=== PATIENT | female | born 1965 | race Caucasian/White ===

== ENCOUNTER → 2016-09-03 | Outpatient (REF) | payer BC | LOC: M LAB REF 12:33 | PROVIDERS: ATTEND Nurse Practitioner Adult Health | DX: R50.9 Fever, unspecified (principal) ==

== ENCOUNTER → 2019-09-14 | Outpatient (REF) | payer OTHER ==
[2019-09-14 19:12] LABS: INFLUENZA A AMPLIFICATION NEGATIVE (NEGATIVE); INFLUENZA B AMPLIFICATION NEGATIVE (NEGATIVE)
== END ==
LOC: M LAB REF 16:42
PROVIDERS: ATTEND Registered Nurse
DX: J06.9 Acute upper respiratory infection, unspecified (principal)

== ENCOUNTER 2020-10-13 09:24 | Day surgery (SDC) | payer OTHER ==
[~2020-10-13] VITALS: Ht 165.1 cm; Wt 83.5 kg
[~2020-10-13 09:24] MED LIST: AMLO10TA PO; ASPI81TA26 PO; CETI10CA13 PO; CRYS28TA PO; HYDR-3490 PO; LABE200T32 PO; LIDOCAINE 1% MDV 20ML VIAL SQ PRN; LR 1,000 ML IV ONE; NEXI20TA PO; NOXI1TAB PO; PRAV40TA2 PO; ceFAZolin SOD 2 GM in IV 1 EA IV ONE
[2020-10-13 09:56] LABS: HEMATOCRIT 35.4 % (36.0-47.0); HEMOGLOBIN 10.1 g/dl (12.0-15.5); MEAN CORPUSCULAR HEMOGLOBIN 19.7 pg (27.0-33.0); MEAN CORPUSCULAR HGB CONC 28.5 g/dl (32.0-36.5); PLATELET COUNT, AUTOMATED 389 10^3/uL (150-450); RED BLOOD COUNT 5.13 10^6/uL (4.00-5.40); WHITE BLOOD COUNT 11.3 10^3/uL (4.0-10.0)
[2020-10-13] MEDS ORDERED: fentaNYL 100 MCG/2 ML INJECTION (J3010) As Ordered ONE ×2 (11:47→13:45)
[2020-10-13] MEDS ORDERED: LIDOCAINE 2% 100MG/5ML SDV (FOR ANES.) As Ordered ONE (11:47)
[2020-10-13] MEDS ORDERED: propofoL 200 MG/20 ML VIAL As Ordered ONE (11:47)
[2020-10-13] MEDS ORDERED: SUGAMMADEX SODIUM 500 MG/5 ML VIAL (BRIDION) As Ordered ONE (11:47)
[2020-10-13] MEDS ORDERED: KETOROLAC 60MG 2ML VIAL As Ordered ONE (11:47)
[2020-10-13] MEDS ORDERED: dexameTHASONE 4 MG/ML 1ML VIAL (J1100 PER 1MG) As Ordered ONE (11:47)
[2020-10-13] MEDS ORDERED: ONDANSETRON 4MG/2ML VIAL As Ordered ONE (11:47)
[2020-10-13] MEDS ORDERED: ROCURONIUM BROMIDE 50 MG/5 ML VIAL As Ordered ONE ×2 (11:47→11:56)
[2020-10-13] MEDS ORDERED: MIDAZOLAM INJ 2MG/2ML VIAL (J2250 PER 1MG) As Ordered ONE (11:47)
[2020-10-13] MEDS ORDERED: HYDROmorphone HCL 2 MG/ML 1ML VIAL (J1170) As Ordered ONE (11:47)
[2020-10-13] MEDS ORDERED: ACETAMINOPHEN 1000MG 100ML IV BTL (OFIRMEV) (J0131 PER 10MG) As Ordered ONE (12:34)
[2020-10-13] MEDS: fentaNYL 100 MCG/2 ML INJECTION (J3010) IV PRN ×4 (13:48→14:15)
[2020-10-13] MEDS ORDERED: ONDANSETRON 4MG/2ML VIAL IV PRN (13:55)
[2020-10-13] MEDS ORDERED: oxyCODONE 5MG TAB PO PRN (13:55)
[2020-10-13] MEDS ORDERED: LR 1,000 ML IV SCH (13:55)
[2020-10-13] MEDS ORDERED: NALBUPHINE HCL 10 MG/ML AMP (J2300) IV PRN (14:05)
[2020-10-13] MEDS ORDERED: NS 1,000 ML IV SCH (14:05)
[2020-10-13] MEDS ORDERED: diphenhydrAMINE 50MG/ML VIAL (J1200) IV PRN (14:05)
[2020-10-13] MEDS ORDERED: NALOXONE INJ 0.4MG/1ML VIAL (J2310 PER 1MG) IV PRN (14:05)
[2020-10-13] MEDS ORDERED: IBUPROFEN 600MG TAB PO PRN (14:05)
[2020-10-13] MEDS ORDERED: EPIDURAL/PCA KEYS XX PRN (14:05)
[2020-10-13] MEDS ORDERED: MORPHINE 1MG/ML IN 0.9% NACL 100ML IV BAG IV PRN (14:05)
[2020-10-13] MEDS ORDERED: PRAV20TA2 PO (14:25)
[2020-10-13 15:30] VITALS: BP 151/104
[2020-10-13] MEDS: LR 1,000 ML IV SCH ×2 (15:30→22:19)
[2020-10-13] MEDS ORDERED: BREO1INH3 INH (15:59)
[2020-10-13] MEDS ORDERED: PROAAER10 INH (15:59)
[2020-10-13 16:00] VITALS: BP 128/86
[2020-10-13 17:00] VITALS: BP 124/84
--- NOTE | 2020-10-13 17:48 | RO ---
OPERATIVE NOTE DATE OF OPERATION: 10/13/2020 PREOPERATIVE DIAGNOSIS: Pain, bleeding, and fibroids. POSTOPERATIVE DIAGNOSIS: Pain, bleeding, and fibroids with some minor adhesions most likely from her . PROCEDURE: Robotic-assisted hysterectomy with bilateral salpingo oophorectomy and of course lysis of adhesions. SURGEON: eJssica Suero MD TRIM MASTER OPERATOR: Catarina Painter NP SPECIMEN: Uterus with of course attached cervix and with ovaries and tubes. ANESTHESIA: General endotracheal anesthesia. DESCRIPTION OF PROCEDURE AND FINDINGS: Darline was brought to the operating room where sufficient general tracheal anesthesia was induced. She was prepped and draped in position in the usual sterile fashion. The patient had some natural asymmetry but we did our best to set her as symmetrically as possible. The uterine manipulator was then placed after the uterus was sounded to 10 and of course the Durand with the ability to back-fill was placed. Attention was then turned to the umbilicus where a subumbilical semi-lunar incision was made with sharp and blunt dissection, continued to subcutaneous tissues to the level of the rectus fascia which was transversely incised, secured with 0-Vicryl retention sutures and then the peritoneum entered under direct visualization in an open laparoscopic technique and an Vazquez cannula placed. CO2 insufflation was then begun. After adequate CO2 insufflation, the peritoneal cavity was visualized. There were obstructing adhesions inferiorly, omentum to the anterior abdominal wall in multiple locations. Most of these were filmy and not particularly vascular but they were definitely obstructing the view of the pelvis as noted in the operative report and photos. The upper abdomen was reassuring. Two left-sided, one right-sided ports were placed and prior to docking the robot, we went ahead and using the cold scissors through one of the ports, cut down the most cephalad of these adhesions so that we could do the rest with the robot. We did this because it is very hard to work just below the umbilicus with the robot. The arms will not come back that far and some of the adhesions went right up to that level but we were able to put the camera through one of the side ports and then just worked down through these. Following that, we went ahead and placed the Trendelenburg and docked the robot and then I turned my attention to working from the console. Working from the robotic console, the rest of the adhesions were brought down and the uterus was elevated. Several photos of this fibroid uterus were taken. There were also extensive adhesions of the bladder over the lower uterine segment but we were able to back-fill the bladder and confirm its location. We went ahead and isolated the left infundibulopelvic ligament, cauterized it, transected it, and worked our way back through the broad ligament on the left side up to the round on the left and cauterized this and also transected it, and then worked our way over to the right side following the same procedure carefully identifying the ureters before we did our dissection. We were then able to use cold scissors to just transect the peritoneum across the lower uterine segment. Of course we back-filled the bladder several times to confirm its location due to the restricting adhesions anteriorly, but fortunately the peritoneum was readily dissected and it did retract back more than average but we were able to move the bladder down readily which was good because of course there is extensive recruitment of vascular supply to these fibroids. Fortunately with the bladder down, we were able to isolate those uterine vessels and carefully cauterize and transect them, and then posteriorly we made the colpotomy and worked our way above the insertion of the uterosacrals so that we were avoiding those ureters and keeping those insertions intact. Then with the bladder displaced anteriorly and then made another colpotomy anteriorly and worked our way around to join up with the back working through our cauterized area of the uterine vasculature on both sides and completing that colpotomy. The uterus was delivered into the vagina with some effort. Of course it is enlarged but was able to be delivered with manipulation and the vagina was then closed with V-lock suture in the usual fashion with good approximation and hemostasis achieved. The pelvis was copiously irrigated and reevaluated and good result confirmed. The procedure then ended with the instruments removed, the wounds closed, the 0 Vicryl was used at the fascia at the umbilical incision and the skin at all four wounds closed with 3-0 Vicryl in a subcuticular stitch and dry, sterile dressings were then applied. ESTIMATED BLOOD LOSS FOR THE PROCEDURE: About 75 mL. FLUID REPLACEMENT: Crystalloid. SPECIMEN: Uterus with of course cervix and attached ovaries and tubes. COMPLICATIONS: None. CONDITION AND DISPOSITION: Darline tolerated the procedure well and was recovering in the recovery room in good condition.
[2020-10-13 18:00] VITALS: BP 123/86
[2020-10-13 19:00] VITALS: BP 137/97
[2020-10-13] MEDS: LABETALOL 100MG TAB PO SCH (21:00)
[2020-10-13 22:08] VITALS: BP 146/88
[2020-10-14 01:31] VITALS: BP 122/89
[2020-10-14] MEDS ORDERED: NORCO, ANEXSIA 5/325MG TABLET (HYDROcodone/ACETAMINOPHEN) PO PRN (06:00)
[2020-10-14 06:06] VITALS: BP 127/89
[2020-10-14] MEDS: LR 1,000 ML IV SCH (06:11)
[2020-10-14 07:40] LABS: HEMATOCRIT 33.3 % (36.0-47.0); HEMOGLOBIN 9.5 g/dl (12.0-15.5); MEAN CORPUSCULAR HEMOGLOBIN 19.4 pg (27.0-33.0); MEAN CORPUSCULAR HGB CONC 28.5 g/dl (32.0-36.5); MEAN CORPUSCULAR VOLUME 68.1 fl (80.0-96.0); PLATELET COUNT, AUTOMATED 398 10^3/uL (150-450); RED BLOOD COUNT 4.89 10^6/uL (4.00-5.40); WHITE BLOOD COUNT 18.6 10^3/uL (4.0-10.0)
[2020-10-14] MEDS ORDERED: ALBUTEROL 90 MCG/ACT 8GM HFA INHALER INH SCH (08:00)
[2020-10-14 08:23] VITALS: BP 130/90
[2020-10-14] MEDS: LABETALOL 100MG TAB PO SCH (08:23)
[2020-10-14] MEDS ORDERED: PANTOPRAZOLE 20 MG TAB PO SCH (09:00)
[2020-10-14] MEDS ORDERED: ASPIRIN 81 MG CHEW TABLET PO SCH (09:00)
[2020-10-14] MEDS ORDERED: **UNRESOLVED NON-FORMULARY MED ORDER XX SCH (09:00)
[2020-10-14] MEDS ORDERED: CETIRIZINE (ZyrTEC) 10 MG TAB PO SCH (09:00)
[2020-10-14] MEDS ORDERED: PRAVASTATIN 20 MG TAB PO SCH (09:00)
== END 2020-10-14 11:01 | disposition home or self-care (01) ==
LOC: M SDC 09:24 → M MS5PR 15:35 → M SDC 10-14 11:01
PROVIDERS: ATTEND Obstetrics & Gynecology
DX: N88.8 Other specified noninflammatory disorders of cervix uteri (principal); D25.9 Leiomyoma of uterus, unspecified; N72 Inflammatory disease of cervix uteri; N83.10 Corpus luteum cyst of ovary, unspecified side; K66.0 Peritoneal adhesions (postprocedural) (postinfection); I10 Essential (primary) hypertension; J45.909 Unspecified asthma, uncomplicated; E78.00 Pure hypercholesterolemia, unspecified; Z87.891 Personal history of nicotine dependence; Z79.899 Other long term (current) drug therapy; Z79.82 Long term (current) use of aspirin; Z79.51 Long term (current) use of inhaled steroids
CPT/HCPCS: 36415; 58571; 81025; 85027; 86850; 86900; 86901; 88307; 94640; 96360; 96361; J0131; J0690; J1100; J1170; J1885; J2250; J2405; J3010; S2900

== ENCOUNTER → 2021-01-23 | Outpatient (REF) | payer OTHER ==
[~2021-01-23] MED LIST changes: +BREO1INH3 INH; -LIDOCAINE 1% MDV 20ML VIAL SQ PRN; -LR 1,000 ML IV ONE; +PRAV20TA2 PO; +PROAAER10 INH; -ceFAZolin SOD 2 GM in IV 1 EA IV ONE
[2021-01-23 17:09] LABS: HEMATOCRIT 39.7 % (36.0-47.0)
== END ==
LOC: M LAB REF 15:13
PROVIDERS: ATTEND Nurse Practitioner Adult Health
DX: D50.9 Iron deficiency anemia, unspecified (principal)

== ENCOUNTER → 2022-05-15 | Outpatient (REF) | payer OTHER ==
[~2022-05-15] MED LIST changes: -LABE200T32 PO; +LABE200T5 PO
[2022-05-15 17:11] LABS: HEMATOCRIT 51.6 % (36.0-47.0)
[2022-05-15 18:37] LABS: FERRITIN 128.6 NG/ML (7.3-270.7); PERCENT SATURATION 33.4 % (13.2-45.0)
== END ==
LOC: M LAB REF 16:30
PROVIDERS: ATTEND Nurse Practitioner Adult Health
DX: D50.9 Iron deficiency anemia, unspecified (principal)